=== PATIENT | male | born 1955 | race Caucasian/White ===

== ENCOUNTER 2018-05-01 11:36 | Emergency (ER) | payer BC ==
[~2018-05-01] VITALS: Ht 185.4 cm; Wt 73.9 kg
[2018-05-01] MEDS ORDERED: PROPECIA1 MG PO (11:47)
--- NOTE | 2018-05-01 12:06 | Emergency Room Report ---
History of Present Illness General Chief Complaint: Lower Extremity Injury Source: Patient Present Illness HPI Patient had a mirror drop onto his left big toe yesterday. Pain at the time which increased. When finally removed sock, saw bruise under nail of big toe. He doesn't believe it is fractured. Pain rated 4/10, worse when standing or walking, throbbing and aching. No numbness. Tetanus > 10. No fevers, rashes, bleeding problems. No other somatic complaints. 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[facility] Past Medical History: No Stated History Review of Systems Constitutional: Denies: fever Musculoskeletal: Reports: see HPI Skin: Reports: see HPI Neurological: Reports: see HPI Hematologic/Lymphatic: Reports: see HPI Physical Exam Vital Signs Date Time Temp Pulse Resp B/P (MAP) Pulse Ox O2 Delivery O2 Flow Rate FiO2 05/01/18 11:42 97.9 76 14 122/73 99 Room Air Sp02 EP Interpretation: reviewed, normal General Appearance: well appearing, no apparent distress, GCS 15 Head: normocephalic, atraumatic Eyes: bilateral eye normal inspection, bilateral eye PERRL ENT: hearing grossly normal, normal voice, moist mucus membranes Neck: full range of motion, supple Respiratory: no respiratory distress, speaking full sentences Cardiovascular #1: regular rate, rhythm Cardiovascular #2: 2+ dorsalis pedis (L) - good cap fill Musculoskeletal: back normal, gait/station normal, normal range of motion, no calf tenderness Neurologic: alert, sensory intact, normal gait, grossly normal Psychiatric: mood/affect normal Skin: hematoma - subungual L great toe Procedures Nail Trepanation Nail Trepanation : Consent: Verbal Nail Trepanation Location: left big toe Method of Drainage: nail cauterized Sterile Dressing Applied: Yes Patient Tolerated: Well Complications: None Progress Betadine, cautery cannulation with drainage and relief Medical Decision Making Diagnostic Impression: Primary Impression: Subungual hematoma ER Course Patient with subungual hematoma. Discussed possibility of fx and he declines x- rays and analgesia. Also discussed possibility of nail bed lac. Wants trepanation only. Tetanus indicated. Nail trepanation with relief. Discussed anticipated course. Patient stable for outpatient observation and treatment. Last Vital Signs Date Time Temp Pulse Resp B/P (MAP) Pulse Ox O2 Delivery O2 Flow Rate FiO2 05/01/18 12:30 97.8 71 16 131/78 94 Room Air Status: improved Disposition: HOME, SELF-CARE Condition: Improved Jayme Holbrook MD May 01, 2018 12:06
[2018-05-01] MEDS ORDERED: Tetanus/Diptheria/Pertussis Vaccine 0.5ml Syr IM ONE (12:15)
[2018-05-01 12:30] VITALS: BP 131/78
== END 2018-05-01 12:53 | disposition home or self-care (01) ==
LOC: EMR 12:25
DX: S90.212A Contusion of left great toe with damage to nail, initial encounter (principal); W20.8XXA Other cause of strike by thrown, projected or falling object, initial encounter; Y92.9 Unspecified place or not applicable; Z23 Encounter for immunization
CPT/HCPCS: 90471; 90715; 99283